=== PATIENT | female | born 1930 | race Caucasian/White ===

== ENCOUNTER 2016-11-30 08:26 | Inpatient (IN) | payer OTHER ==
[~2016-11-30] VITALS: Ht 157.5 cm; Wt 56.3 kg
[~2016-11-30 08:26] MED LIST: ALEN70TA4 PO; ASPEC325 PO; CALC1TAB10 PO; CYAN100020 PO; DRGTP12 TD; MULTTAB58 PO; OMEG1400 PO; VITACAP26 PO
[2016-11-30] MEDS ORDERED: ASPI81TA28 PO (08:48)
[2016-11-30] MEDS ORDERED: CHOL1000 PO (08:50)
[2016-11-30] MEDS ORDERED: SODIUM CHLORIDE 0.9% 1000ML 1,000 ML IV STA (09:13)
--- NOTE | 2016-11-30 09:31 | DIAGNOSTIC IMAGING REPORT ---
CHEST ONE VIEW PORTABLE CLINICAL HISTORY: EVALUATE ALTERED MENTAL STATUS/WEAKNESS COMPARISON STUDY: No previous studies for comparison. FINDINGS: The bones soft tissues and hemidiaphragms are normal. The cardiomediastinal silhouette is normal. The lungs are clear. The pulmonary vasculature is normal. IMPRESSION: Negative chest. Electronically signed by: Michael Foley M.D. 11/30/2016 9:30 AM Dictated Date/Time: 11/30/2016 9:30 AM
[2016-11-30 10:07] LABS: BASO % 0.2 %; BASO ABS # 0.02 K/uL (0-0.2); COMPLETE YES; EOS % 1.7 %; HEMATOCRIT 37.9 % (37-47); IG% 0.5 %; LYMPH % 28.7 %; MEAN CELL VOLUME 87.1 fL (80-100); MEAN CORPUSCULAR HEMOGLOBIN 28.3 pg (25-34); MEAN CORPUSCULAR HGB CONC 32.5 g/dl (32-36); MEAN PLATELET VOLUME 10.7 fL (7.4-10.4); MONO % 8.5 %; NEUT % 60.4 %; PLATELET COUNT 287 K/uL (130-400); RED BLOOD COUNT 4.35 M/uL (4.2-5.4); WHITE BLOOD COUNT 8.36 K/uL (4.8-10.8)
[2016-11-30 10:17] LABS: PROTHROMBIN TIME (PATIENT) 11.2 SECONDS (9.0-12.0)
[2016-11-30 10:18] LABS: ALT/SGPT 16 U/L (12-78); BLOOD UREA NITROGEN 17 mg/dl (7-18); BUN/CREATININE RATIO 30.5 (10-20); CALCIUM 9.8 mg/dl (8.5-10.1); CARBON DIOXIDE 23 mmol/L (21-32); CHLORIDE 108 mmol/L (98-107); CREATININE 0.56 mg/dl (0.60-1.20); GLUCOSE 81 mg/dl (70-99); MAGNESIUM 1.9 mg/dl (1.8-2.4); POTASSIUM 4.4 mmol/L (3.5-5.1); SODIUM 141 mmol/L (136-145)
--- NOTE | 2016-11-30 10:19 | DIAGNOSTIC IMAGING REPORT ---
HEAD CT NONCONTRAST CT DOSE: 767.83 mGy.cm HISTORY: Mental status change confusion TECHNIQUE: Multiaxial CT images of the head were performed without the use of intravenous contrast. Comparison: None. Findings: The paranasal sinuses and mastoid air cells are clear. The calvarium and skull base are intact. The ventricles and sulci are within normal limits. There is no mass, hematoma, midline shift, or acute infarct. Impression: No acute intracranial abnormality. Electronically signed by: Michael Foley M.D. 11/30/2016 10:18 AM Dictated Date/Time: 11/30/2016 10:18 AM
[2016-11-30 10:27] LABS: ALKALINE PHOSPHATASE 61 U/L (45-117); AST/SGOT 22 U/L (15-37); CKMB/CK RATIO 1.7 (0-3.0); THYROID STIMULATING HORMONE 0.774 uIu/ml (0.300-4.500)
[2016-11-30 11:02] LABS: MANUAL MICROSCOPIC REQUIRED? NO; REVIEW REQ? NO; URINE APPEARANCE CLEAR (CLEAR); URINE BILIRUBIN NEG (NEG); URINE COLOR YELLOW; URINE EPITHELIAL CELL AUTO 0-5 /lpf (0-5); URINE NITRITE POS (NEG); URINE PH 8.5 (4.5-7.5); URINE SPECIFIC GRAVITY 1.009 (1.000-1.030); UROBILINOGEN NEG (NEG); ZZURINE CULT IF INDIC CATH YES
[2016-11-30] MEDS ORDERED: CEFTRIAXONE SOD INJ 1 GM ADDVIAL IV STA (11:58)
--- NOTE | 2016-11-30 12:19 | EMERGENCY ROOM VISIT NOTE ---
History Report prepared by Bean: Boom Valencia Under the Supervision of: Dr. Everton Carlson D.O. First contact with patient: 09:13 Chief Complaint: CONFUSION Stated Complaint: EYE PAIN W/DISORIENTATION Nursing Triage Summary: Son states patient has had increased confusion since yesterday. History of Present Illness The patient is a 86 year old female who presents to the Emergency Room with complaints of an episode of confusion occurring earlier this morning. Per the nurse, the son notes she has been more confused today than normal. Her stroke scale is negative, and she is able to swallow. She complains of pain behind her eye. She does not have a fever. Per the patient, she complains of left foot pain beginning yesterday. Source of History: patient, family (son), nursing staff Onset: earlier today Position: foot (left), other (global) Quality: other (confusion/left foot pain) Timing: other (persistent) Associated Symptoms: No fevers Note: The patient is noted to have pain behind her eye. Review of Systems See HPI for pertinent positives & negatives. A total of 10 systems reviewed and were otherwise negative. Family History FH: CVA (cerebrovascular accident) (Father and sister) Social History Smoking Status: Never Smoker Alcohol Use: none Drug Use: none Marital Status: Housing Status: lives alone Occupation Status: retired Current/Historical Medications Scheduled Aspirin (Aspirin Ec), 81 MG PO DAILY Calcium Carbonate-Cholecalcife (Calcium 1000 + D), 1 TAB PO DAILY Cholecalciferol (Vitamin D3), 1 TAB PO DAILY Cyanocobalamin (Vitamin B12), 1 TAB PO DAILY Multiple Vitamin (Multivitamin), 1 TAB PO DAILY [place]-3 Fatty Acids ([place]-3), 1 CAPSULE PO DAILY Vitamins C & E (Vitamin C), 1 CAPSULE PO DAILY Allergies Coded Allergies: Morphine and Related (Verified Adverse Reaction, Intermediate, NAUSEA, 11/30) Physical Exam Vital Signs Date Time Temp Pulse Resp B/P Pulse Ox O2 Delivery O2 Flow Rate FiO2 11/30/16 10:30 74 25 152/68 95 Room Air 11/30/16 09:07 63 11/30/16 08:32 37.3 58 20 176/63 100 Room Air Physical Exam VITAL SIGNS: were reviewed as above. GENERAL:Non-toxic in appearance. SKIN: Warm dry and pink. HEAD: Normocephalic and atraumatic. OROPHARYNX: Is clear and moist NECK: Supple without lymphadenopathy or meningismus. LUNGS: clear. HEART: Regular rate and rhythm. ABDOMEN: Soft and nontender. EXTREMITIES: Warm and well perfused. NEUROLOGICALLY: Mildly confused to events; otherwise awake and oriented to person and place. Cranial nerves 2-12 are intact. There is no pronator drift. Cerebellar testing is within normal limits. There is no nystagmus. There is no facial droop. Speech is clear. Vision is grossly normal. MUSCULOSKELETAL: Good muscle tone. No evidence of trauma. Medical Decision & Procedures ER Provider Diagnostic Interpretation: X ray results and stated below per my interpretation and radiologist interpretation. Other radiology results and stated below per my review and radiologist interpretation: HEAD CT NONCONTRAST Findings: The paranasal sinuses and mastoid air cells are clear. The calvarium and skull base are intact. The ventricles and sulci are within normal limits. There is no mass, hematoma, midline shift, or acute infarct. Impression: No acute intracranial abnormality. Electronically signed by: Michael Foley M.D. 11/30/2016 10:18 AM Dictated Date/Time: 11/30/2016 10:18 AM CHEST ONE VIEW PORTABLE FINDINGS: The bones soft tissues and hemidiaphragms are normal. The cardiomediastinal silhouette is normal. The lungs are clear. The pulmonary vasculature is normal. IMPRESSION: Negative chest. Electronically signed by: Michael Foley M.D. 11/30/2016 9:30 AM Dictated Date/Time: 11/30/2016 9:30 AM Laboratory Results 11/30/16 09:30 Red Blood Count 4.35, Mean Corpuscular Volume 87.1, Mean Corpuscular Hemoglobin 28.3, Mean Corpuscular Hemoglobin Concent 32.5, Mean Platelet Volume 10.7, Neutrophils (%) (Auto) 60.4, Lymphocytes (%) (Auto) 28.7, Monocytes (%) (Auto) 8.5, Eosinophils (%) (Auto) 1.7, Basophils (%) (Auto) 0.2, Neutrophils # (Auto) 5.05, Lymphocytes # (Auto) 2.40, Monocytes # (Auto) 0.71, Eosinophils # (Auto) 0.14, Basophils # (Auto) 0.02 11/30/16 09:30 Test 11/30/16 09:30 11/30/16 10:51 White Blood Count 8.36 K/uL (4.8-10.8) Red Blood Count 4.35 M/uL (4.2-5.4) Hemoglobin 12.3 g/dL (12.0-16.0) Hematocrit 37.9 % (37-47) Mean Corpuscular Volume 87.1 fL (80-100) Mean Corpuscular Hemoglobin 28.3 pg (25-34) Mean Corpuscular Hemoglobin Concent 32.5 g/dl (32-36) Platelet Count 287 K/uL (130-400) Mean Platelet Volume 10.7 fL (7.4-10.4) Neutrophils (%) (Auto) 60.4 % Lymphocytes (%) (Auto) 28.7 % Monocytes (%) (Auto) 8.5 % Eosinophils (%) (Auto) 1.7 % Basophils (%) (Auto) 0.2 % Neutrophils # (Auto) 5.05 K/uL (1.4-6.5) Lymphocytes # (Auto) 2.40 K/uL (1.2-3.4) Monocytes # (Auto) 0.71 K/uL (0.11-0.59) Eosinophils # (Auto) 0.14 K/uL (0-0.5) Basophils # (Auto) 0.02 K/uL (0-0.2) RDW Standard Deviation 50.3 fL (36.4-46.3) RDW Coefficient of Variation 15.8 % (11.5-14.5) Immature Granulocyte % (Auto) 0.5 % Immature Granulocyte # (Auto) 0.04 K/uL (0.00-0.02) Prothrombin Time 11.2 SECONDS (9.0-12.0) Prothromb Time International Ratio 1.0 (0.9-1.1) Activated Partial Thromboplast Time 25.4 SECONDS (21.0-31.0) Partial Thromboplastin Ratio 1.0 Anion Gap 10.0 mmol/L (3-11) Estimated GFR () 97.9 Estimated GFR (Non- 84.4 BUN/Creatinine Ratio 30.5 (10-20) Calcium Level 9.8 mg/dl (8.5-10.1) Magnesium Level 1.9 mg/dl (1.8-2.4) Total Bilirubin 0.6 mg/dl (0.2-1) Direct Bilirubin 0.1 mg/dl (0-0.2) Aspartate Amino Transf (AST/SGOT) 22 U/L (15-37) Alanine Aminotransferase (ALT/SGPT) 16 U/L (12-78) Alkaline Phosphatase 61 U/L (45-117) Total Creatine Kinase 35 U/L (26-192) Creatine Kinase MB 0.6 ng/ml (0.5-3.6) Creatine Kinase MB Ratio 1.7 (0-3.0) Troponin I < 0.015 ng/ml (0-0.045) Total Protein 7.2 gm/dl (6.4-8.2) Albumin 3.4 gm/dl (3.4-5.0) Lipase 205 U/L (73-393) Thyroid Stimulating Hormone (TSH) 0.774 uIu/ml (0.300-4.500) Urine Color YELLOW Urine Appearance CLEAR (CLEAR) Urine pH 8.5 (4.5-7.5) Urine Specific [place] 1.009 (1.000-1.030) Urine Protein NEG (NEG) Urine Glucose (UA) NEG (NEG) Urine Ketones NEG (NEG) Urine Occult Blood NEG (NEG) Urine Nitrite POS (NEG) Urine Bilirubin NEG (NEG) Urine Urobilinogen NEG (NEG) Urine Leukocyte Esterase LARGE (NEG) Urine WBC (Auto) >30 /hpf (0-5) Urine RBC (Auto) 0-4 /hpf (0-4) Urine Hyaline Casts (Auto) 1-5 /lpf (0-5) Urine Epithelial Cells (Auto) 0-5 /lpf (0-5) Urine Bacteria (Auto) 3+ (NEG) Laboratory results as stated above per my review. Medications Administered Medications (Trade) Dose Ordered Sig/Jenniffer Route Start Time Stop Time Status Last Admin Dose Admin Sodium Chloride (Nss 1000ml) 1,000 ml @ 200 mls/hr Q5H STAT IV 11/30/16 09:13 11/30/16 14:12 11/30/16 09:55 200 MLS/HR ECG Indication: other (confusion) Rate (beats per minute): 62 Rhythm: normal sinus Findings: no acute ischemic change, no ectopy ED Course 912: Ordered NSS 1,000 ml @ 200 mls/hr IV. 0924: Previous medical records were reviewed. The patient was evaluated in room B5. A complete history and physical examination was performed. 1158: Ordered Rocephin Inj 1 gm IV. 1205: Discussed the patient's case with Beny Saini. The patient will be evaluated for further treatment and disposition. Medical Decision Differential includes acute coronary syndrome, myocardial infarction, CVA, TIA, anemia, infection, pneumonia, UTI, pyelonephritis, poor nutrition, dehydration, electrolyte disturbance,hypoglycemia. This is an 86 year female who presents to the ED with confusion. Vital signs are stable. Physical exam was normal. Mental status was awake and alert 2. She was confused at times. Chest x-ray and CT scan of the brain were negative for acute disease. CBC is normal. Complete metabolic panel was unremarkable. Troponin is negative. Urine suggest UTI. The patient was started on IV fluids and IV antibiotics. She was seen by the hospitalist for further inpatient care. Consults Time Called: 1200 Consulting Physician: Dr. Beny Saini [facility] Returned Call: 1205 Discussed the patient's case with Beny Saini. The patient will be evaluated for further treatment and disposition. Impression Primary Impression: UTI (urinary tract infection) Additional Impression: Confusion Scribe Attestation The scribe's documentation has been prepared under my direction and personally reviewed by me in its entirety. I confirm that the note above accurately reflects all work, treatment, procedures, and medical decision making performed by me. Departure Information Dispostion Being Evaluated By Hospitalist Referrals No Doctor, Assigned (PCP) Patient Instructions My [facility] Problem Qualifiers
[2016-11-30] MEDS ORDERED: SODIUM CHLORIDE 0.9% 1000ML 1,000 ML IV SCH (12:48)
[2016-11-30] MEDS ORDERED: ONDANSETRON INJ 2 MG/ML 2 ML VIAL IV PRN (13:00)
[2016-11-30] MEDS ORDERED: ACETAMINOPHEN 325 MG TAB PO PRN (13:00)
--- NOTE | 2016-11-30 13:05 | History and Physical ---
History & Physical Date & Time of Service: Nov 30, 2016 at 13:05 Chief Complaint: Eye Pain W/Disorientation Primary Care Physician: No Doctor, Assigned History of Present Illness Source: patient, family Patient is an 86Yr old female with PMH of Pernicious anemia, Vitamin D deficiency, Osteoporosis, Situational high blood pressure presents with history of intermittent confusion since this morning. Also reports patient had left retrobulbar pain overnight which resolved this morning. Patient also had increased urinary frequency and an episode of vomiting this morning. Denies any history of fall, head trauma, LOC, light headedness, blurred vision, slurred speech, vertigo, headache, chest pain, SOB, fever, chills, hematuria, abd pain, change in bowel habits. Her UA is suggestive of UTI and CT Head/CXR showed no acute pathology. She is oriented while in ED and is able to follow commands but not a good historian. Past Medical/Surgical History Medical Problems: (1) Osteoporosis Status: Chronic (2) Pernicious anemia Status: Chronic (3) Vitamin D deficiency Status: Chronic SURGICAL HISTORY: s/p TOTAL HIP ARTHROPLASTY Family History FH: CVA (cerebrovascular accident) (Father and sister) Social History Smoking Status: Never Smoker Alcohol Use: none Drug Use: none Marital Status: Housing status: lives alone Occupational Status: retired Immunizations History of Influenza Vaccine: Yes History of Tetanus Vaccine?: utd History of Pneumococcal: Yes History of Hepatitis B Vaccine: No Multi-Drug Resistant Organisms History of MDRO: No Allergies Coded Allergies: Morphine and Related (Verified Adverse Reaction, Intermediate, NAUSEA, 11/30) Home Medications Scheduled Aspirin (Aspirin Ec), 81 MG PO DAILY Calcium Carbonate-Cholecalcife (Calcium 1000 + D), 1 TAB PO DAILY Cholecalciferol (Vitamin D3), 1 TAB PO DAILY Cyanocobalamin (Vitamin B12), 1 TAB PO DAILY Multiple Vitamin (Multivitamin), 1 TAB PO DAILY [place]-3 Fatty Acids ([place]-3), 1 CAPSULE PO DAILY Vitamins C & E (Vitamin C), 1 CAPSULE PO DAILY Review of Systems See HPI for pertinent positives & negatives. A total of 10 systems reviewed and were otherwise negative. Physical Exam Vital Signs Date Time Temp Pulse Resp B/P Pulse Ox O2 Delivery O2 Flow Rate FiO2 11/30/16 10:30 74 25 152/68 95 Room Air 11/30/16 09:07 63 11/30/16 08:32 37.3 58 20 176/63 100 Room Air General Appearance: + mild distress, + thin, + pertinent finding (Fragile) Head: normocephalic, atraumatic Eyes: normal inspection, PERRL, EOMI, sclerae normal ENT: normal ENT inspection, hearing grossly normal Neck: supple, no adenopathy, no JVD, trachea midline Respiratory/Chest: chest non-tender, lungs clear, normal breath sounds, no accessory muscle use Cardiovascular: regular rate, rhythm, no edema, no murmur Abdomen/GI: normal bowel sounds, non tender, soft Back: normal inspection Extremities/Musculoskelatal: normal inspection, no calf tenderness, no pedal edema, normal range of motion, non-tender Neurologic/Psych: cardiac nurse II-XII nml as tested, no motor/sensory deficits, alert, oriented x 3 Skin: normal color, warm/dry Lymphatic: no adenopathy Diagnostics Laboratory Results Results Past 24 Hours Test 11/30/16 09:30 11/30/16 10:51 11/30/16 12:54 Range/Units White Blood Count 8.36 4.8-10.8 K/uL Red Blood Count 4.35 4.2-5.4 M/uL Hemoglobin 12.3 12.0-16.0 g/dL Hematocrit 37.9 37-47 % Mean Corpuscular Volume 87.1 80-100 fL Mean Corpuscular Hemoglobin 28.3 25-34 pg Mean Corpuscular Hemoglobin Concent 32.5 32-36 g/dl Platelet Count 287 130-400 K/uL Mean Platelet Volume 10.7 7.4-10.4 fL Neutrophils (%) (Auto) 60.4 % Lymphocytes (%) (Auto) 28.7 % Monocytes (%) (Auto) 8.5 % Eosinophils (%) (Auto) 1.7 % Basophils (%) (Auto) 0.2 % Neutrophils # (Auto) 5.05 1.4-6.5 K/uL Lymphocytes # (Auto) 2.40 1.2-3.4 K/uL Monocytes # (Auto) 0.71 0.11-0.59 K/uL Eosinophils # (Auto) 0.14 0-0.5 K/uL Basophils # (Auto) 0.02 0-0.2 K/uL RDW Standard Deviation 50.3 36.4-46.3 fL RDW Coefficient of Variation 15.8 11.5-14.5 % Immature Granulocyte % (Auto) 0.5 % Immature Granulocyte # (Auto) 0.04 0.00-0.02 K/uL Prothrombin Time 11.2 9.0-12.0 SECONDS Prothromb Time International Ratio 1.0 0.9-1.1 Activated Partial Thromboplast Time 25.4 21.0-31.0 SECONDS Partial Thromboplastin Ratio 1.0 Sodium Level 141 136-145 mmol/L Potassium Level 4.4 3.5-5.1 mmol/L Chloride Level 108 98-107 mmol/L Carbon Dioxide Level 23 21-32 mmol/L Anion Gap 10.0 3-11 mmol/L Blood Urea Nitrogen 17 7-18 mg/dl Creatinine 0.56 0.60-1.20 mg/dl Estimated GFR () 97.9 Estimated GFR (Non- 84.4 BUN/Creatinine Ratio 30.5 10-20 Random Glucose 81 70-99 mg/dl Calcium Level 9.8 8.5-10.1 mg/dl Magnesium Level 1.9 1.8-2.4 mg/dl Total Bilirubin 0.6 0.2-1 mg/dl Direct Bilirubin 0.1 0-0.2 mg/dl Aspartate Amino Transf (AST/SGOT) 22 15-37 U/L Alanine Aminotransferase (ALT/SGPT) 16 12-78 U/L Alkaline Phosphatase 61 45-117 U/L Total Creatine Kinase 35 26-192 U/L Creatine Kinase MB 0.6 0.5-3.6 ng/ml Creatine Kinase MB Ratio 1.7 0-3.0 Troponin I < 0.015 0-0.045 ng/ml Total Protein 7.2 6.4-8.2 gm/dl Albumin 3.4 3.4-5.0 gm/dl Lipase 205 73-393 U/L Thyroid Stimulating Hormone (TSH) 0.774 0.300-4.500 uIu/ml Urine Color YELLOW Urine Appearance CLEAR CLEAR Urine pH 8.5 4.5-7.5 Urine Specific [place] 1.009 1.000-1.030 Urine Protein NEG NEG Urine Glucose (UA) NEG NEG Urine Ketones NEG NEG Urine Occult Blood NEG NEG Urine Nitrite POS NEG Urine Bilirubin NEG NEG Urine Urobilinogen NEG NEG Urine Leukocyte Esterase LARGE NEG Urine WBC (Auto) >30 0-5 /hpf Urine RBC (Auto) 0-4 0-4 /hpf Urine Hyaline Casts (Auto) 1-5 0-5 /lpf Urine Epithelial Cells (Auto) 0-5 0-5 /lpf Urine Bacteria (Auto) 3+ NEG Microbiology Results 11/30/16 Blood Culture, Abiodun Batch Pending 11/30/16 Blood Culture, Abiodun Batch Pending 11/30/16 Urine Culture, Received Pending Diagnostic Radiology CT Head: No acute intracranial abnormality CXR: Negative chest. EKG NSR, [id number] Impression Assessment and Plan ALTERED MENTAL STATUS: likely secondary to UTI Admit in tele as inpatient CT head showed no acute pathology Start IV antibiotics, IVF Blood/Urine cultures Procalcitonin/Lactate:wnl Neuro checks Consider MRI if no resolution of confusion Fall/Aspiration precautions No focal deficits Osteoporosis/Vitamin D deficiency: Stable Continue home meds Pernicious anemia: Hb:12.3 Stable Monitor Hb DVT Px: Lovenox SQ Code Status: Full code Disposition: rn women services consulted PT/OT VTE Prophylaxis VTE Risk Assessment Done? Y/N: Yes Risk Level: Low
[2016-11-30 14:46] VITALS: BP 169/89; PULSE 75; TEMP 37.8; O2SAT 98; Ht 157.5 cm; Wt 56.3 kg
[2016-11-30] MEDS ORDERED: PATIENT'S HEIGHT AND/OR WEIGHT NEEDED SCH (15:00)
[2016-11-30 19:44] VITALS: BP 158/58; PULSE 76; TEMP 38.1; O2SAT 97
[2016-11-30 20:00] VITALS: O2SAT 97
[2016-11-30] MEDS: ENOXAPARIN 40 MG/0.4 ML SYR SC SCH (20:03)
[2016-12-01] VITALS (10 sets, daily range): BP systolic 120–158; BP diastolic 45–78; PULSE 52–67; TEMP 36.5–37.1; O2SAT 96–100
[2016-12-01 05:53] LABS: BASO % 0.3 %; BASO ABS # 0.02 K/uL (0-0.2); COMPLETE YES; EOS % 0.8 %; HEMATOCRIT 31.8 % (37-47); IG% 0.1 %; LYMPH % 29.8 %; LYMPH ABS # 2.14 K/uL (1.2-3.4); MEAN CELL VOLUME 87.4 fL (80-100); MEAN CORPUSCULAR HEMOGLOBIN 28.8 pg (25-34); MEAN PLATELET VOLUME 10.6 fL (7.4-10.4); MONO % 10.2 %; NEUT % 58.8 %; PLATELET COUNT 232 K/uL (130-400); RED BLOOD COUNT 3.64 M/uL (4.2-5.4); WHITE BLOOD COUNT 7.17 K/uL (4.8-10.8)
[2016-12-01 06:28] LABS: CREATININE 0.52 mg/dl (0.60-1.20)
[2016-12-01 06:29] LABS: BUN/CREATININE RATIO 23.3 (10-20)
[2016-12-01] MEDS ORDERED: POTASSIUM CHLORIDE 10 MEQ TABCR PO ONE ×2 (07:45→16:00)
[2016-12-01] MEDS: CALCIUM 600MG + VIT D 400 IU TAB PO SCH (08:10)
[2016-12-01] MEDS: CHOLECALCIFEROL 400 INTER.UNIT TAB PO SCH (08:11)
[2016-12-01] MEDS: ASPIRIN 81 MG ECTAB PO SCH (08:11)
[2016-12-01] MEDS: MULTIVITAMIN TAB PO SCH (08:11)
[2016-12-01] MEDS: CYANOCOBALAMIN 500 MCG TAB (VIT B-12) PO SCH (08:11)
--- NOTE | 2016-12-01 10:06 | Progress Note ---
Internal Med Progress Note Date of Service: Dec 01, 2016. Provider Documentation: SUBJECTIVE: Seen and examined at bedside. Patient feels much better today. Confusion resolved. Family at bedside- states patient seemed to be back to her baseline mental status. OBJECTIVE: Vital Signs-as noted below General Appearance: thin, + pertinent finding (Fragile) Head: normocephalic, atraumatic Eyes: normal inspection, PERRL, EOMI, sclerae normal ENT: normal ENT inspection, hearing grossly normal Neck: supple, no adenopathy, no JVD, trachea midline Respiratory/Chest: chest non-tender, lungs clear, normal breath sounds, no accessory muscle use Cardiovascular: regular rate, rhythm, no edema, no murmur Abdomen/GI: normal bowel sounds, non tender, soft Back: normal inspection Extremities/Musculoskelatal: normal inspection, no calf tenderness, no pedal edema, normal range of motion, non-tender Neurologic/Psych: complaints coordinator II-XII nml as tested, no motor/sensory deficits, alert, oriented x 3 Skin: normal color, warm/dry Lymphatic: no adenopathy Lab data as noted below. ASSESSMENT & PLAN: ALTERED MENTAL STATUS: likely secondary to UTI Confusion resolved CT head showed no acute pathology Continue IV antibiotics DC IVF Blood/Urine cultures: Urine culture growing gram negative bacilli Procalcitonin/Lactate:wnl Fall/Aspiration precautions No focal deficits DC Neuro checks Hypokalemia: Will replace and monitor Check magnesium Osteoporosis/Vitamin D deficiency: Stable Continue home meds Pernicious anemia: Hb:12.3 >> down to 10.5 likely hemodilutional from IVF No signs of bleeding Stable Monitor Hb DVT Px: Lovenox SQ Code Status: Full code Disposition: Will transfer to medical floor registered nurse surgical services consulted PT/OT Likely discharge in next 48 hours Vital Signs: Date Time Temp Pulse Resp B/P Pulse Ox O2 Delivery O2 Flow Rate FiO2 12/01/16 08:04 36.9 60 18 126/51 98 Room Air 12/01/16 04:35 97 Room Air 12/01/16 04:00 36.9 65 20 120/59 97 Room Air 12/01/16 00:32 97 Room Air 12/01/16 00:00 37.1 67 20 139/45 96 Room Air 11/30/16 20:00 97 Room Air 11/30/16 19:44 38.1 76 20 158/58 97 Room Air 11/30/16 16:00 Room Air 11/30/16 14:46 37.8 75 20 169/89 98 Room Air 11/30/16 14:46 37.8 75 20 169/89 98 Room Air 11/30/16 13:47 65 23 167/78 95 Room Air 11/30/16 13:16 71 11/30/16 12:15 68 20 161/72 96 Room Air 11/30/16 10:30 74 25 152/68 95 Room Air Lab Results: Results Past 24 Hours Test 11/30/16 10:51 11/30/16 15:18 12/01/16 05:10 Range/Units Urine Color YELLOW Urine Appearance CLEAR CLEAR Urine pH 8.5 4.5-7.5 Urine Specific [place] 1.009 1.000-1.030 Urine Protein NEG NEG Urine Glucose (UA) NEG NEG Urine Ketones NEG NEG Urine Occult Blood NEG NEG Urine Nitrite POS NEG Urine Bilirubin NEG NEG Urine Urobilinogen NEG NEG Urine Leukocyte Esterase LARGE NEG Urine WBC (Auto) >30 0-5 /hpf Urine RBC (Auto) 0-4 0-4 /hpf Urine Hyaline Casts (Auto) 1-5 0-5 /lpf Urine Epithelial Cells (Auto) 0-5 0-5 /lpf Urine Bacteria (Auto) 3+ NEG Lactic Acid Level 1.3 0.4-2.0 mmol/L Procalcitonin < 0.05 0-0.5 ng/mL White Blood Count 7.17 4.8-10.8 K/uL Red Blood Count 3.64 4.2-5.4 M/uL Hemoglobin 10.5 12.0-16.0 g/dL Hematocrit 31.8 37-47 % Mean Corpuscular Volume 87.4 80-100 fL Mean Corpuscular Hemoglobin 28.8 25-34 pg Mean Corpuscular Hemoglobin Concent 33.0 32-36 g/dl Platelet Count 232 130-400 K/uL Mean Platelet Volume 10.6 7.4-10.4 fL Neutrophils (%) (Auto) 58.8 % Lymphocytes (%) (Auto) 29.8 % Monocytes (%) (Auto) 10.2 % Eosinophils (%) (Auto) 0.8 % Basophils (%) (Auto) 0.3 % Neutrophils # (Auto) 4.21 1.4-6.5 K/uL Lymphocytes # (Auto) 2.14 1.2-3.4 K/uL Monocytes # (Auto) 0.73 0.11-0.59 K/uL Eosinophils # (Auto) 0.06 0-0.5 K/uL Basophils # (Auto) 0.02 0-0.2 K/uL RDW Standard Deviation 52.0 36.4-46.3 fL RDW Coefficient of Variation 16.2 11.5-14.5 % Immature Granulocyte % (Auto) 0.1 % Immature Granulocyte # (Auto) 0.01 0.00-0.02 K/uL Sodium Level 143 136-145 mmol/L Potassium Level 3.0 3.5-5.1 mmol/L Chloride Level 109 98-107 mmol/L Carbon Dioxide Level 21 21-32 mmol/L Anion Gap 13.0 3-11 mmol/L Blood Urea Nitrogen 12 7-18 mg/dl Creatinine 0.52 0.60-1.20 mg/dl Est Creatinine Clear Calc Drug Dose 61.4 ml/min Estimated GFR () 100.3 Estimated GFR (Non- 86.5 BUN/Creatinine Ratio 23.3 10-20 Random Glucose 89 70-99 mg/dl Calcium Level 8.0 8.5-10.1 mg/dl Microbiology Results 11/30/16 Blood Culture, Received Pending 11/30/16 Blood Culture, Received Pending 11/30/16 Urine Culture - Preliminary, Resulted Gram Negative Bacilli
[2016-12-01] MEDS ORDERED: CEFTRIAXONE SOD INJ 1 GM in DEXTROSE 5% ADD-VANTAGE 50ML 50 ML IV SCH (13:00)
[2016-12-01] MEDS: ENOXAPARIN 40 MG/0.4 ML SYR SC SCH (21:31)
[2016-12-02 06:47] LABS: BASO % 0.3 %; BASO ABS # 0.02 K/uL (0-0.2); COMPLETE YES; EOS % 4.6 %; IG% 0.2 %; LYMPH % 26.5 %; LYMPH ABS # 1.62 K/uL (1.2-3.4); MEAN CELL VOLUME 88.2 fL (80-100); MEAN CORPUSCULAR HEMOGLOBIN 28.1 pg (25-34); MEAN CORPUSCULAR HGB CONC 31.8 g/dl (32-36); MEAN PLATELET VOLUME 10.3 fL (7.4-10.4); MONO % 10.8 %; NEUT % 57.6 %; PLATELET COUNT 207 K/uL (130-400); RED BLOOD COUNT 3.74 M/uL (4.2-5.4); WHITE BLOOD COUNT 6.11 K/uL (4.8-10.8)
[2016-12-02 07:15] LABS: BUN/CREATININE RATIO 29.4 (10-20); CALCIUM 8.5 mg/dl (8.5-10.1); CREATININE 0.48 mg/dl (0.60-1.20); MAGNESIUM 1.9 mg/dl (1.8-2.4); POTASSIUM 4.2 mmol/L (3.5-5.1)
[2016-12-02 07:50] VITALS: BP 156/73; PULSE 54; TEMP 36.4; O2SAT 99
[2016-12-02] MEDS: CHOLECALCIFEROL 400 INTER.UNIT TAB PO SCH (07:57)
[2016-12-02] MEDS: MULTIVITAMIN TAB PO SCH (07:58)
[2016-12-02] MEDS: CYANOCOBALAMIN 500 MCG TAB (VIT B-12) PO SCH (07:58)
[2016-12-02] MEDS: ASPIRIN 81 MG ECTAB PO SCH (07:58)
[2016-12-02] MEDS: CALCIUM 600MG + VIT D 400 IU TAB PO SCH (07:58)
--- NOTE | 2016-12-02 09:36 | Progress Note ---
Internal Med Progress Note Date of Service: Dec 02, 2016. Provider Documentation: SUBJECTIVE: Seen and examined at bedside. Confusion completely resolved. Denies any fever, chills, urinary frequency or burning micturition, chest pain, SOB. OBJECTIVE: Vital Signs-as noted below General Appearance: thin, + pertinent finding (Fragile) Head: normocephalic, atraumatic Eyes: normal inspection, PERRL, EOMI, sclerae normal ENT: normal ENT inspection, hearing grossly normal Neck: supple, no adenopathy, no JVD, trachea midline Respiratory/Chest: chest non-tender, lungs clear, normal breath sounds, no accessory muscle use Cardiovascular: regular rate, rhythm, no edema, no murmur Abdomen/GI: normal bowel sounds, non tender, soft Back: normal inspection Extremities/Musculoskelatal: normal inspection, no calf tenderness, no pedal edema, normal range of motion, non-tender 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 ASSESSMENT & PLAN: ALTERED MENTAL STATUS: likely secondary to UTI Confusion completely resolved and is back to baseline CT head showed no acute pathology S/P IV Ceftriaxone for 2 days. Switch to PO levaquin Blood culture:No growth to date Urine culture: E.coli Procalcitonin/Lactate:wnl Fall/Aspiration precautions No focal deficits Hypokalemia: Resolved Osteoporosis/Vitamin D deficiency: Stable Continue home meds Pernicious anemia: Hb:12.3 >> down to 10.5 likely hemodilutional from IVF No signs of bleeding Stable Monitor Hb DVT Px: Lovenox SQ Code Status: Full code Disposition: protective services case worker consulted PT/OT Plan to discharge home with home health today Vital Signs: Date Time Temp Pulse Resp B/P Pulse Ox O2 Delivery O2 Flow Rate FiO2 12/02/16 07:50 36.4 54 18 156/73 99 Room Air 12/02/16 00:25 Room Air 12/01/16 23:50 36.5 55 18 151/78 100 Room Air 12/01/16 16:07 36.6 52 18 153/75 99 Room Air 12/01/16 16:00 Room Air 12/01/16 11:24 36.6 61 20 158/71 97 Room Air 12/01/16 10:46 36.9 60 18 98 Lab Results: Results Past 24 Hours Test 12/02/16 06:12 Range/Units White Blood Count 6.11 4.8-10.8 K/uL Red Blood Count 3.74 4.2-5.4 M/uL Hemoglobin 10.5 12.0-16.0 g/dL Hematocrit 33.0 37-47 % Mean Corpuscular Volume 88.2 80-100 fL Mean Corpuscular Hemoglobin 28.1 25-34 pg Mean Corpuscular Hemoglobin Concent 31.8 32-36 g/dl Platelet Count 207 130-400 K/uL Mean Platelet Volume 10.3 7.4-10.4 fL Neutrophils (%) (Auto) 57.6 % Lymphocytes (%) (Auto) 26.5 % Monocytes (%) (Auto) 10.8 % Eosinophils (%) (Auto) 4.6 % Basophils (%) (Auto) 0.3 % Neutrophils # (Auto) 3.52 1.4-6.5 K/uL Lymphocytes # (Auto) 1.62 1.2-3.4 K/uL Monocytes # (Auto) 0.66 0.11-0.59 K/uL Eosinophils # (Auto) 0.28 0-0.5 K/uL Basophils # (Auto) 0.02 0-0.2 K/uL RDW Standard Deviation 53.0 36.4-46.3 fL RDW Coefficient of Variation 16.4 11.5-14.5 % Immature Granulocyte % (Auto) 0.2 % Immature Granulocyte # (Auto) 0.01 0.00-0.02 K/uL Sodium Level 142 136-145 mmol/L Potassium Level 4.2 3.5-5.1 mmol/L Chloride Level 110 98-107 mmol/L Carbon Dioxide Level 22 21-32 mmol/L Anion Gap 10.0 3-11 mmol/L Blood Urea Nitrogen 14 7-18 mg/dl Creatinine 0.48 0.60-1.20 mg/dl Est Creatinine Clear Calc Drug Dose 66.6 ml/min Estimated GFR () 102.9 Estimated GFR (Non- 88.8 BUN/Creatinine Ratio 29.4 10-20 Random Glucose 87 70-99 mg/dl Calcium Level 8.5 8.5-10.1 mg/dl Magnesium Level 1.9 1.8-2.4 mg/dl
[2016-12-02] MEDS ORDERED: LEVO-459 PO (09:44)
--- NOTE | 2016-12-02 09:48 | Discharge Summary ---
Discharge Summary Admission Date: Nov 30, 2016 at 12:54 Discharge Date: Dec 02, 2016 Discharge Disposition: Home with services Principal Diagnosis: UTI Procedures: CT head: Impression: No acute intracranial abnormality. CXR: IMPRESSION: Negative chest Consultations: None Pending Studies/Follow-Up: Follow up with your Primary care doctor on 12/11/16 at 1:00pm Complete the antibiotic course as prescribed Seek immediate medical attention if your symptoms reoccur or worsen Medication Reconciliation New Medications: Levofloxacin (Levaquin) 500 Mg Tab 500 MG PO DAILY for 5 Days Continued Medications: Aspirin (Aspirin Ec) 81 Mg Tab 81 MG PO DAILY Calcium Carbonate-Cholecalcife (Calcium 1000 + D) 1 Tab Tab 1 TAB PO DAILY Cholecalciferol (Vitamin D3) 1,000 Unit Tab 1 TAB PO DAILY for 90 Days, #90 TAB 3 Refills Cyanocobalamin (Vitamin B12) 1,000 Mcg Tab 1 TAB PO DAILY Multiple Vitamin (Multivitamin) 1 Tab Tab 1 TAB PO DAILY, TAB [place]ory-3 Fatty Acids ([place]ory-3) 1 Cap Cap 1 CAPSULE PO DAILY Vitamins C & E (Vitamin C) 1 Cap Cap 1 CAPSULE PO DAILY Admission Information HPI (per Admitting provider): Patient is an 86Yr old female with PMH of Pernicious anemia, Vitamin D deficiency, Osteoporosis, Situational high blood pressure presents with history of intermittent confusion since this morning. Also reports patient had left retrobulbar pain overnight which resolved this morning. Patient also had increased urinary frequency and an episode of vomiting this morning. Denies any history of fall, head trauma, LOC, light headedness, blurred vision, slurred speech, vertigo, headache, chest pain, SOB, fever, chills, hematuria, abd pain, change in bowel habits. Her UA is suggestive of UTI and CT Head/CXR showed no acute pathology. She is oriented while in ED and is able to follow commands but not a good historian. Physical Exam (per Admitting): General Appearance: + mild distress, + thin, + pertinent finding (Fragile) Head: normocephalic, atraumatic Eyes: normal inspection, PERRL, EOMI, sclerae normal ENT: normal ENT inspection, hearing grossly normal Neck: supple, no adenopathy, no JVD, trachea midline Respiratory/Chest: chest non-tender, lungs clear, normal breath sounds, no accessory muscle use Cardiovascular: regular rate, rhythm, no edema, no murmur Abdomen/GI: normal bowel sounds, non tender, soft Back: normal inspection Extremities/Musculoskelatal: normal inspection, no calf tenderness, no pedal edema, normal range of motion, non-tender 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 Switch to PO Levaquin Blood culture:No growth to date Urine culture: E.coli Procalcitonin/Lactate:wnl Fall/Aspiration precautions No focal deficits Hypokalemia: Resolved Osteoporosis/Vitamin D deficiency: Stable Continue home meds Pernicious anemia: Hb:12.3 >> down to 10.5 likely hemodilutional from IVF No signs of bleeding Stable Monitor Hb DVT Px: Lovenox SQ Code Status: Full code Disposition: volunteer services director consulted PT/OT Plan to discharge home with home health today Total time spent on discharge = This includes examination of the patient, discharge planning, medication reconciliation, and communication with other providers. Discharge Instructions Discharge Instructions Admission Reason for Admission: Confusion Discharge Discharge Diagnosis / Problem: UTI Discharge Goals Goal(s): Decrease discomfort, Improve function Activity Recommendations Activity Limitations: resume your previous activity Exercise/Sports Limitations: as tolerated . Instructions / Follow-Up Instructions / Follow-Up Follow up with your Primary care doctor on 12/11/16 at 1:00pm Complete the antibiotic course as prescribed Seek immediate medical attention if your symptoms reoccur or worsen Current Hospital Diet Patient's current hospital diet: Regular Diet Discharge Diet Recommended Diet: Regular Diet Pending Studies Studies pending at discharge: no Medical Emergencies . Who to Call and When: Medical Emergencies: If at any time you feel your situation is an emergency, please call 911 immediately. . Non-Emergent Contact Non-Emergency issues call your: Primary Care Provider Call Non-Emergent contact if: you have a fever, you have any medication questions . . "Provider Documentation" section prepared by Beny Saini. VTE Core Measure Inpt VTE Proph given/why not?: Enoxaparin (Lovenox)SQ
[2016-12-02 09:56] VITALS: BP 156/73; PULSE 54; TEMP 36.4; O2SAT 99
== END 2016-12-02 11:55 | disposition home health service (06) | DRG 690 ==
LOC: ENRESERVDT → ENRESERVTM → C.EDB 08:27 → C.2E 12:54 → EDBEDREQ 13:19 → C.4E 12-01 11:12
PROVIDERS: ADMIT Internal Medicine; ATTEND Internal Medicine
DX: N39.0 Urinary tract infection, site not specified (principal); Z79.82 Long term (current) use of aspirin; D51.0 Vitamin B12 deficiency anemia due to intrinsic factor deficiency; M81.0 Age-related osteoporosis without current pathological fracture; E55.9 Vitamin D deficiency, unspecified; E87.6 Hypokalemia; Z82.3 Family history of stroke